=== PATIENT | male | born 1970 | race Caucasian/White ===

== ENCOUNTER 2024-06-07 11:36 | Emergency (ER) | payer SELFPAY ==
[2024-06-07] VITALS (10 sets, daily range): BP systolic 131–150; BP diastolic 71–90; PULSE 60–82; RESP 15–20; TEMP 36.3; O2SAT 97–100
--- NOTE | ~2024-06-07 | CT_ITS ---
EXAMINATION: CT brain wo con DATE: 06/07/2024 14:05 INDICATION: Near syncope. TECHNIQUE: Computed tomography (CT) of the head was performed without intravenous contrast. The mA wa s adjusted according to patient size. Iterative reconstruction technique was employed. The dose-lengt h product was 605.33 mGy-cm. COMPARISON: None FINDINGS: There is no intracranial hemorrhage, acute infarction, or abnormal intracranial mass lesion . The ventricles are normal in size. The orbits are normal. There is mild mucosal thickening in the p aranasal sinuses. The mastoid air cells are normal. IMPRESSION: 1. Normal brain. Reviewed, dictated and finalized at location A. IMPRESSION: 1. Normal brain.
--- NOTE | ~2024-06-07 | XR_ITS ---
EXAMINATION: XR chest 2V DATE: 06/07/2024 12:32 INDICATION: Chest cramp. Near syncope. TECHNIQUE: PA and lateral views of the chest were obtained. COMPARISON: None FINDINGS: No focal airspace opacities, pulmonary edema or pneumothorax. Minimal blunting of the right posterior sulcus consistent with tiny right pleural effusion. The cardiomediastinal silhouette is normal. Mild to moderate thoracic spondylosis with mild anterior wedging of a couple mid thoracic vertebral tanvir s. IMPRESSION: 1. Tiny right pleural effusion. Reviewed, dictated and finalized at location A.
--- NOTE | 2024-06-07 11:38 | ECG_ITS ---
Test Date: 2024-06-07 11:42:34 Measurements Intervals [place] Rate: 54 P: 51 MO: 179 QRS: -4 QRSD: 90 T: 15 QT: 407 QTc: 388 Interpretive Statements SINUS BRADYCARDIA OTHERWISE NORMAL ELECTROCARDIOGRAM No previous ECG available for comparison Electronically Signed On 06-07-2024 12:58:08 CDT by Todd Hyatt M.D.
[2024-06-07 12:17] LABS: Basophils Absolute Auto 0.1 K/mm3 (0.0-0.1); Eosinophils Absolute Auto 0.1 K/mm3 (0-0.3); Eosinophils Percent Auto 1.2 % (0-4.4); Hematocrit 44.4 % (42.0-52.0); Hemoglobin 15.1 g/dL (14.0-18.0); Immature Granulocyte Absolute 0.04 K/mm3 (0.00-0.031); Immature Granulocyte Percent A 0.5 % (0-0.5); Lymphocytes Absolute Auto 2.16 K/mm3 (0.9-3.2); Mean Corpuscular Hemoglobin 32.5 pg (26-34); Mean Corpuscular Volume 95.7 fl (80-100); Mean Platelet Volume 9.2 fl (7.4-10.4); Monocytes Absolute Auto 0.6 K/mm3 (0.1-0.6); Monocytes Percent Auto 7.7 % (2.6-8.5); Neutrophils Absolute Auto 5.3 K/mm3 (1.3-6.7); Neutrophils Percent Auto 63.6 % (45.5-73.1); Platelet Count Result 254 k/mm3 (150-375); Red Blood Count 4.64 M/mm3 (4.6-6.20); Red Cell Distribution Width 12.8 % (11.5-14.5); White Blood Count 8.3 K/mm3 (4.5-10.0)
[2024-06-07 12:29] LABS: Alanine Aminotransferase 18 U/L (6-50); Albumin Level 4.4 g/dL (3.5-5.1); Alkaline Phosphatase 71 U/L (38-126); Anion Gap 9 mmol/L (4-12); Aspartate Amino Transferase 22 U/L (17-59); Blood Urea Nitrogen 14 mg/dL (9-20); Carbon Dioxide 25 mmol/L (22-30); Chloride 103 mmol/L (98-107); Estimated CRCL calculation 99 ml/min; Estimated Glomerular Filt Rate > 60; Glucose 140 mg/dL (65-110); Lipase 69 U/L (23-300); Potassium 3.8 mmol/L (3.4-5.0); Sodium 137 mmol/L (137-145)
[2024-06-07 12:30] LABS: Prothrombin Time 13.2 Seconds (11.1-14.7)
[2024-06-07 12:31] LABS: Partial Thromboplastin Time 27.1 Seconds (22.3-36.8)
[2024-06-07 12:40] LABS: Troponin I < 0.012 ng/mL (0.000-0.034)
--- NOTE | 2024-06-07 13:41 | ED.SYNCOPE ---
HPI - Syncope General Chief Complaint: Chest Pain <BRIANDA Fowler Last Filed: 06/07/24 13:56> Stated Complaint: syncope <BRIANDA Fowler Last Filed: 06/07/24 13:56> Time Seen by Provider: 06/07/24 13:41 <BRIANDA Fowler Last Filed: 06/07/24 13:56> Focused HPI: Patient is a 54 y/o male who presents to the ED with c/o near syncope. Patient reports he works in a [employer] service and was walking up onto a trailer when he began feeling lightheaded. States he began sweating profusely, nauseous, dizzy. States he tried to work through the symptoms, but they continued to worsen which prompted him to come here. Did not fully lose consciousness, but states he came close. He is feeling slightly better currently, but still feels lightheaded with changing positions. Reports intermittent palpitations, but denies CP, SOB, JIMÉNEZ, vision changes, focal weakness/numbness. GENERAL: Appears older than stated age, well-nourished, and in no acute distress. HEAD: Normocephalic, atraumatic. CHEST: Clear to auscultation. ?No respiratory distress. HEART: Regular rate and rhythm.? NEURO: ?Alert and oriented x3. No focal deficits. Patient screened in triage and initial orders placed.? ?Additional care and disposition to be based upon?diagnostic testing and treatment. <BRIANDA Fowler Last Filed: 06/07/24 13:56> Source: patient <BRIANDA Fowler Last Filed: 06/07/24 13:56> Mode of arrival: ambulatory <BRIANDA Fowler Last Filed: 06/07/24 13:56> Limitations: no limitations <BRIANDA Fowler Last Filed: 06/07/24 13:56> History of Present Illness HPI narrative: 54-year-old male presenting after a syncopal episode. States that he was getting up on his trailer to get his mower when he began feeling lightheaded. He started sweating, feeling nauseous, and feeling he is about to faint. He denies any chest pain or shortness of breath or palpitations or leg swelling. No infectious symptoms. No further complaints. <Beverly Hair MD - Last Filed: 06/11/24 11:45> Related Data Allergies/Adverse Reactions: Allergies Allergy/AdvReac Type Severity Reaction Status Date / Time No Known Allergies Allergy Unverified 02/08/13 10:11 <Janie Rocha PA-C - Last Filed: 06/07/24 13:56> Review of Systems Review of Systems: All systems reviewed & are unremarkable except as noted in HPI and below <Beverly Hair MD - Last Filed: 06/11/24 11:45> [facility] Family History Family History: Family History Mother Patient's mother is in good health Father Patient's father is in good health Sibling Patient's sister is in good health Patient's brother is in good health <Janie Rocha PA-C - Last Filed: 06/07/24 13:56> Social History Social History: Social History Smoking status: Heavy tobacco smoker Alcohol intake: current <Janie Rocha PA-C - Last Filed: 06/07/24 13:56> Exam Narrative: GENERAL: Well-appearing, in no acute distress, pleasant cooperative HEAD: Normocephalic, atraumatic. EYES: PERRLA and EOMI. ENT: Mucous membranes moist. NECK: Supple. CHEST: Clear to auscultation. No respiratory distress. HEART: Regular rate and rhythm. No murmur heard ABDOMEN: Soft, nontender, nondistended EXTREMITIES: Normal range of motion. No edema. SKIN: Warm, dry, no rash. NEURO: No focal deficits. Alert and oriented x3. PSYCH: Normal mood and affect. <Beverly Hair MD - Last Filed: 06/11/24 11:45> Course Vital Signs Vital signs: Vital Signs Temperature 97.4 F L 06/07/24 11:44 Pulse Rate 72 06/07/24 11:44 Respiratory Rate 20 06/07/24 11:44 Blood Pressure 131/71 06/07/24 11:44 Pulse Oximetry 98 06/07/24 11:44 Oxygen Delivery Room Air
[2024-06-07 15:01] LABS: Troponin I < 0.012 ng/mL (0.000-0.034)
[2024-06-07] MEDS: SODIUM CHLORIDE 0.9% IV 1,000 ML 999 ML IV CONT (15:15)
[2024-06-07 15:53] LABS: Magnesium 2.3 mg/dL (1.6-2.3)
== END 2024-06-07 16:50 | disposition home or self-care (01) ==
PROVIDERS: Physician Assistant; Emergency Provider Emergency Medicine
DX: R55 Syncope and collapse (principal); F17.200 Nicotine dependence, unspecified, uncomplicated; R00.1 Bradycardia, unspecified
CPT/HCPCS: 36415; 70450; 71046; 80053; 83690; 83735; 84484; 85025; 85610; 85730; 93005; 96360; 99284; J7030